=== PATIENT | male | born 1995 | race Hispanic/Latino ===

== ENCOUNTER 2020-06-06 00:58 | Emergency (ER) | payer OTHER ==
[~2020-06-06] VITALS: Ht 175.3 cm; Wt 73.0 kg
[2020-06-06] MEDS ORDERED: IBUPROFEN600 MG PO (02:53)
[2020-06-06 04:02] VITALS: BP 138/70
== END 2020-06-06 03:50 | disposition home or self-care (01) | DRG 999 ==
LOC: ED 00:58
PROC: 0HQ1XZZ Repair Face Skin, External Approach (ICD-10-PCS; principal; 2020-06-06)
PROC: 2W3DX1Z Immobilization of Left Lower Arm using Splint (ICD-10-PCS; 2020-06-06)
DX: S01.81XA Laceration without foreign body of other part of head, initial encounter (principal); S52.502A Unspecified fracture of the lower end of left radius, initial encounter for closed fracture; V48.5XXA Car driver injured in noncollision transport accident in traffic accident, initial encounter